=== PATIENT | male | born 1950 | race Caucasian/White ===

== ENCOUNTER 2020-12-27 12:42 | Observation (INO) | payer OTHER, MEDICARE, BC ==
[~2020-12-27] VITALS: Ht 172.7 cm; Wt 78.2 kg
[2020-12-27 14:14] LABS: BASOPHILS ABSOLUTE AUTO 0.08 K/mm3 (0.00-0.23); BASOPHILS PERCENT AUTO 1 % (0-2); EOSINOPHILS PERCENT AUTO 2 % (0-6); Hematocrit 23.1 % (37.0-53.0); Hemoglobin 6.7 g/dL (13.5-17.5); IMMATURE GRAN ABSOLUTE AUTO 0.03 K/mm3 (0.00-0.10); IMMATURE GRAN PERCENT AUTO 0 % (0-1); LYMPHOCYTES ABSOLUTE AUTO 1.43 K/mm3 (0.84-5.20); LYMPHOCYTES PERCENT AUTO 17 % (21-46); MONOCYTES ABSOLUTE AUTO 0.73 K/mm3 (0.16-1.47); MONOCYTES PERCENT AUTO 9 % (4-13); Mean Corpuscular HGB 20.4 pg (26.0-34.0); Mean Corpuscular Volume 70 fL (80-100); Mean Platelet Volume 10.3 fL (9.1-12.4); NEUTROPHILS ABSOLUTE AUTO 5.92 K/mm3 (1.96-9.15); NEUTROPHILS PERCENT AUTO 71 % (41-73); Platelet Count 330 K/mm3 (150-400); RDW Coefficient Variation 16.4 % (11.7-14.2); RDW Standard Deviation 41.3 fL (35.1-46.3); Red Blood Cell Count 3.28 M/mm3 (4.30-5.90); White Blood Cell Count 8.39 K/mm3 (4.00-11.30)
[2020-12-27 14:41] LABS: Alanine Aminotransfer (ALT/SGP 26 U/L (12-78); Albumin, Blood 3.6 g/dL (3.4-5.0); Albumin/Globulin Ratio 0.9 (0.8-1.8); Alk Phos 108 U/L (50-136); Anion Gap 7 mmol/L (6-16); Aspartate Aminotrans (AST/SGOT 14 U/L (12-37); Bilirubin, Total 0.4 mg/dL (0.1-1.0); Blood Urea Nitrogen 23 mg/dL (8-24); Bun/Creatinine Ratio 20.9 (12.0-20.0); CO2, Blood 20 mmol/L (21-32); Calcium, Blood 8.6 mg/dL (8.5-10.1); Chloride, Blood 108 mmol/L (98-108); Glomerular Filtration Rate >60 (60-); Glucose, Blood 115 mg/dL (70-99); Sodium, Blood 135 mmol/L (136-145); Total Protein, Blood 7.6 g/dL (6.4-8.2); Troponin I <0.015 ng/mL (0.000-0.040)
[2020-12-27] MEDS ORDERED: ELIQUIS5 M2 PO (18:10)
[2020-12-27] MEDS ORDERED: Carvedilol12.5 MG PO ×2 (18:11)
[2020-12-27] MEDS ORDERED: ATOR40TA PO (18:11)
[2020-12-27] MEDS ORDERED: ASPI325EC PO (18:11)
[2020-12-27] MEDS ORDERED: MESALAMINE DR400 MG PO (18:12)
--- NOTE | 2020-12-27 19:45 | NUR ---
REPORT RECIEVED FROM DENISE YA RN AT 1945 AND AWAITING PT T/F TO ROOM 324.
--- NOTE | 2020-12-27 20:15 | NUR ---
PT T/F TO ROOM 324 VIA GURNEY AT 2004 W/ AT BEDSIDE. HE'S A/OX4, WAS ORIENTED TO ROOM AND CALL SYSTEM AND KNOWS TO CALL FOR ASSIST OOB D/T SYNCOPE W/DIZZYNESS PRIOR TO ADMIT. 1 UNIT OF PRBC'S IS TRANSFUSING AT THIS TIME. NO S/S REACTION OR ADVERSE EVENT. PT DENIES ALL COMPLAINTS. VSS/AFEBRILE.
--- NOTE | 2020-12-27 21:00 | NUR ---
PT TOLERATED 1ST UNIT PRBC'S W/O ALLERGIC REACTION OR ADVERSE EVENT. VSS T/O.
[2020-12-27 23:59] LABS: Hematocrit 22.3 % (37.0-53.0); Hemoglobin 6.7 g/dL (13.5-17.5)
--- NOTE | 2020-12-28 00:45 | NUR ---
HGB/HCT HAVE NOT IMPROVED AND REMAINS 6.7/22.3, WAS 6.7/23.1. ALERTED W/ANOTHER UNIT PRBC'S RX'D. WILL TRANSFUSE UPON ARRIVAL FROM BLOOD BANK.
--- NOTE | 2020-12-28 00:46 | NUR ---
REPORT RECIEVED FROM DENISE YA RN AT 1945 AND AWAITING PT T/F TO ROOM 324.
--- NOTE | 2020-12-28 06:04 | NUR ---
FOR DETAILS ON BLOOD TRANSFUSIONS, SEE PROGRESS NOTES AND BLOOD TRANSFUSION PAPER DOCUMENTATION.
--- NOTE | 2020-12-28 06:27 | NUR ---
SUMMARY: PT A/OX4, CALLS APPROPRIATELY TO SPECIFY NEEDS AND IS PLEASANT AND COOPERATIVE W/CARE. HE'S BEEN ASYMPTOMATIC OF ANEMIA THIS SHIFT BUT IS SBA FOR SAFETY D/T DIZZYNESS AND WEAKNESS PRIOR TO ADMIT. NO EVIDENCE ACTIVE BLEEDING BUT PT HASN'T HAD ANY BM'S THIS SHIFT. ABDO IS SOFT/NONTENDER AND PT DENIES PAIN, BLOATING, NAUSEA AND DIZZYNESS T/O NOCTE. 2 UNIT'S PRBC'S TRANSFUSED W/O REACTION OR ADVERSE EVENT. VSS/AFEBRILE AND BP IMPROVED THIS SHIFT. NS INFUSES AT 75 ML/HR. HGB/HCT DROPPED SLIGHTLY AFTER 1ST UNIT PRBC'S (WAS 6.7/23.1 THEN DOWN TO 6.7/22.3) THUS WARRANTING 2ND TRANSFUSION. AM LABS PENDING. NO ACUTE CHANGES, VSS/AFEBRILE. CONSULTED IN ER W/PLANS FOR PT TO F/U W/OWN GI MD OUTPATIENT. WCTM AND REPORT TO NEW RN.
[2020-12-28 06:35] LABS: BASOPHILS ABSOLUTE AUTO 0.05 K/mm3 (0.00-0.23); BASOPHILS PERCENT AUTO 1 % (0-2); EOSINOPHILS ABSOLUTE AUTO 0.15 K/mm3 (0.00-0.68); EOSINOPHILS PERCENT AUTO 2 % (0-6); Hematocrit 26.1 % (37.0-53.0); Hemoglobin 7.9 g/dL (13.5-17.5); IMMATURE GRAN ABSOLUTE AUTO 0.02 K/mm3 (0.00-0.10); IMMATURE GRAN PERCENT AUTO 0 % (0-1); LYMPHOCYTES PERCENT AUTO 18 % (21-46); MONOCYTES ABSOLUTE AUTO 0.64 K/mm3 (0.16-1.47); MONOCYTES PERCENT AUTO 9 % (4-13); Mean Corpuscular HGB 21.9 pg (26.0-34.0); Mean Corpuscular HGB Conc 30.3 g/dL (31.5-36.5); Mean Corpuscular Volume 72 fL (80-100); Mean Platelet Volume 10.4 fL (9.1-12.4); NEUTROPHILS ABSOLUTE AUTO 5.26 K/mm3 (1.96-9.15); NEUTROPHILS PERCENT AUTO 71 % (41-73); Platelet Count 265 K/mm3 (150-400); RDW Coefficient Variation 16.6 % (11.7-14.2); RDW Standard Deviation 43.1 fL (35.1-46.3); Red Blood Cell Count 3.61 M/mm3 (4.30-5.90); White Blood Cell Count 7.42 K/mm3 (4.00-11.30)
[2020-12-28 07:22] LABS: Alanine Aminotransfer (ALT/SGP 25 U/L (12-78); Albumin, Blood 3.1 g/dL (3.4-5.0); Albumin/Globulin Ratio 0.9 (0.8-1.8); Alk Phos 93 U/L (50-136); Anion Gap 7 mmol/L (6-16); Aspartate Aminotrans (AST/SGOT 16 U/L (12-37); Bilirubin, Total 1.3 mg/dL (0.1-1.0); Blood Urea Nitrogen 18 mg/dL (8-24); Bun/Creatinine Ratio 16.5 (12.0-20.0); CO2, Blood 21 mmol/L (21-32); Calcium, Blood 8.1 mg/dL (8.5-10.1); Chloride, Blood 112 mmol/L (98-108); Creatinine, Blood 1.09 mg/dL (0.60-1.20); Globulin, Blood 3.3 g/dL (2.2-4.0); Glomerular Filtration Rate >60 (60-); Glucose, Blood 103 mg/dL (70-99); Potassium, Blood 3.9 mmol/L (3.5-5.5); Sodium, Blood 140 mmol/L (136-145); Total Protein, Blood 6.4 g/dL (6.4-8.2)
[2020-12-28] MEDS ORDERED: ONDA4ODT MM (11:29)
[2020-12-28 11:55] LABS: Hematocrit 24.7 % (37.0-53.0); Hemoglobin 7.6 g/dL (13.5-17.5); Mean Corpuscular HGB 22.6 pg (26.0-34.0); Mean Corpuscular HGB Conc 30.8 g/dL (31.5-36.5); Mean Corpuscular Volume 73 fL (80-100); Platelet Count 225 K/mm3 (150-400); RDW Coefficient Variation 16.7 % (11.7-14.2); RDW Standard Deviation 44.3 fL (35.1-46.3); Red Blood Cell Count 3.37 M/mm3 (4.30-5.90); White Blood Cell Count 6.51 K/mm3 (4.00-11.30)
--- NOTE | 2020-12-28 15:17 | NUR ---
PT DISCHARGED THE PT VERBALIZED UNDERSTANDING OF THE DC INSTRUCTIONS. DR. HAINES WAS IN TO SEE THE PT PRIOR TO DISCHARGE. THE PT APPEARED TO BE BREATHING EASILY ON RA AT THE TIME OF DC. THE PT WAS A/OX4. THE PT WAS TRANSFERED VIA WHEELCHAIR ACCOMPANIED BY HIS AND THIS RN
== END 2020-12-28 15:06 | disposition home or self-care (01) ==
LOC: ER 12:42 → MEDS 12:43
PROVIDERS: Family Medicine; Physician Assistant; ADMIT Internal Medicine
DX: D50.0 Iron deficiency anemia secondary to blood loss (chronic) (principal); K51.911 Ulcerative colitis, unspecified with rectal bleeding; K92.2 Gastrointestinal hemorrhage, unspecified; T39.015A Adverse effect of aspirin, initial encounter; T45.515A Adverse effect of anticoagulants, initial encounter; I25.2 Old myocardial infarction; I25.10 Atherosclerotic heart disease of native coronary artery without angina pectoris; I48.91 Unspecified atrial fibrillation; E78.5 Hyperlipidemia, unspecified; I10 Essential (primary) hypertension; F17.210 Nicotine dependence, cigarettes, uncomplicated; Z95.5 Presence of coronary angioplasty implant and graft; Z79.01 Long term (current) use of anticoagulants; Z79.82 Long term (current) use of aspirin
CPT/HCPCS: 36415; 71046; 80053; 83880; 84484; 85014; 85018; 85025; 85027; 86850; 86900; 86901; 86923; 93005; 93010; A9270; G0378; J7030; J7050; P9016